=== PATIENT | female | born 1975 | race Caucasian/White ===

== ENCOUNTER 2016-12-28 08:19 | Emergency (ER) | payer SELFPAY ==
[2016-12-28 08:56] LABS: Basophils % (Auto) 0.7 % (0.0-1.8); Eosinophils % (Auto) 1.3 % (0.0-4.3); Hematocrit 36.9 % (30.3-42.9); Hemoglobin 12.3 gm/dl (10.1-14.3); Mean Corpuscular HGB Conc 33 % (30-34); Mean Corpuscular Hemoglobin 27 pg (28-32); Mean Corpuscular Volume 81 fl (79-97); Platelet Count 178 K/mm3 (140-440); Red Blood Count 4.58 M/mm3 (3.65-5.03); Red Cell Distribution Width 14.1 % (13.2-15.2); White Blood Count 9.2 K/mm3 (4.5-11.0)
[2016-12-28 09:15] LABS: Anion Gap 19 mmol/L; BUN/Creatinine Ratio 18; Blood Urea Nitrogen 11 mg/dL (7-17); Calcium 8.9 mg/dL (8.4-10.2); Carbon Dioxide 24 mmol/L (22-30); Chloride 101.6 mmol/L (98-107); Glucose 102 mg/dL (65-100); Potassium 3.7 mmol/L (3.6-5.0); Sodium 141 mmol/L (137-145)
[2016-12-28] MEDS ORDERED: PROVENTIL IH ONE (21:56)
[2016-12-28] MEDS ORDERED: DELTASONE PO ONE (21:57)
[2016-12-28] MEDS ORDERED: TESSALON PERLES PO ONE (21:57)
[2016-12-28] MEDS ORDERED: TORADOL IM ONE (22:02)
--- NOTE | 2016-12-28 22:02 | Emergency Department Report ---
ED Chest Pain HPI - General Chief Complaint: Chest Pain Stated Complaint: CHEST PAIN Time Seen by Provider: 12/28/16 21:51 Source: patient Mode of arrival: Ambulatory Limitations: Language Barrier - History of Present Illness Initial Comments: 41-year-old female with past medical history of reflux has presented to the ED complaining of chest pain. Onset of chest pain started 1 day prior to ED arrival. Patient states she's been coughing for over 1 week. Cough has been dry intermittent, no relaxing or worsening factors. Concerning chest pain, it is along the anterior wall, nonradiating, worse with cough, improves when she is not coughing. Patient denies: Fever/chills, hemoptysis, recent travel, history of TB, lower extremity edema, history of PE/DVT, history of NE. MD Complaint: chest pain -: days(s) (1) Onset: during rest Pain Location: other (anterior chest wall ) Severity scale (0 -10): 4 Quality: sharp Consistency: constant Improves With: nothing Worsens With: other (cough ) re: denies: nausea, vomting, diaphoresis, dyspnea Other Symptoms: cough. denies: fever, syncope, rash, acid taste in mouth, palpitations, burping Treatments Prior to Arrival: none - Related Data Previous Rx's Medication Instructions Recorded Last Taken Type ALBUTEROL Inhaler [ProAir HFA 2 puff IH QID PRN #1 inhalation 12/28/16 Unknown Rx Inhaler] ALBUTEROL NEB's [Proventil 0.083% 2.5 mg IH TID PRN #30 neb 12/28/16 Unknown Rx NEBS] Benzonatate [Tessalon Perles] 100 mg PO Q8HR #20 capsule 12/28/16 Unknown Rx predniSONE [Deltasone] 50 mg PO QDAY #5 tab 12/28/16 Unknown Rx Allergies Allergy/AdvReac Type Severity Reaction Status Date / Time No Known Allergies Allergy Unverified 12/28/16 08:41 Heart Score - HEART Score History: Slightly suspicious EKG: Normal Age: < 45 Risk factors: No known risk factors Troponin: < normal limit HEART Score: 0 - Critical Actions Critical Actions: 0-3 pts:0.9-1.7%risk of adverse cardiac event.Candidate for discharge ED Review of Systems ROS: Stated complaint: CHEST PAIN Other details as noted in HPI Constitutional: denies: chills, fever Eyes: denies: eye pain, eye discharge, vision change ENT: denies: ear pain, throat pain Respiratory: cough. denies: orthopnea, shortness of breath, SOB with exertion, SOB at rest, wheezing Cardiovascular: chest pain. denies: palpitations Endocrine: no symptoms reported Gastrointestinal: denies: abdominal pain, nausea, diarrhea Genitourinary: denies: urgency, dysuria, discharge Musculoskeletal: denies: back pain, joint swelling, arthralgia Skin: denies: rash, lesions Neurological: denies: headache, weakness, paresthesias Psychiatric: denies: anxiety, depression Hematological/Lymphatic: denies: easy bleeding, easy bruising ED Past Medical Hx - Past Medical History Previous Medical History?: No - Surgical History Past Surgical History?: Yes Additional Surgical History: C section - Social History Smoking Status: Never Smoker Substance Use Type: None - Medications Home Medications: Home Medications Medication Instructions Recorded Confirmed Last Taken Type ALBUTEROL Inhaler [ProAir HFA 2 puff IH QID PRN #1 inhalation 12/28/16 Unknown Rx Inhaler] ALBUTEROL NEB's [Proventil 0.083% 2.5 mg IH TID PRN #30 neb 12/28/16 Unknown Rx NEBS] Benzonatate [Tessalon Perles] 100 mg PO Q8HR #20 capsule 12/28/16 Unknown Rx predniSONE [Deltasone] 50 mg PO QDAY #5 tab 12/28/16 Unknown Rx ED Physical Exam - General Limitations: Language Barrier General appearance: alert, in no apparent distress - Head Head exam: Present: atraumatic, normocephalic - Eye Eye exam: Present: normal appearance - ENT ENT exam: Present: mucous membranes moist - Neck Neck exam: Present: normal inspection - Respiratory Respiratory exam: Present: normal lung sounds bilaterally, chest wall tenderness (Pt has reproducible chest wall tenderness ). Absent: respiratory distress, wheezes, rales, rhonchi - Cardiovascular Cardiovascular Exam: Present: regular rate, normal rhythm. Absent: systolic murmur, diastolic murmur, rubs, gallop - GI/Abdominal GI/Abdominal exam: Present: soft, normal bowel sounds. Absent: distended, tenderness, guarding - Extremities Exam Extremities exam: Present: normal inspection, full ROM, tenderness. Absent: pedal edema, calf tenderness - Back Exam Back exam: Present: normal inspection - Neurological Exam Neurological exam: Present: alert, oriented X3 - Psychiatric Psychiatric exam: Present: normal affect, normal mood - Skin Skin exam: Present: warm, dry, intact, normal color. Absent: rash ED Course Vital Signs 12/28/16 12/28/16 12/28/16 08:38 21:33 22:18 Temperature 98.5 F 98 F Pulse Rate 70 61 Pulse Rate [ 71 Bilateral] Respiratory 16 61 H Rate Respiratory 18 Rate [Bilateral ] Blood Pressure 127/81 Blood Pressure 139/74 [Left] O2 Sat by Pulse 100 100 Oximetry ED Medical Decision Making - Lab Data Result diagrams: 12/28/16 08:43 12/28/16 08:43 - EKG Data -: EKG Interpreted by Me EKG shows normal: sinus rhythm (79), axis (UPRIGHT ), intervals, QRS complexes ( 96) - EKG Data Interpretation: nonspecific ST-T wave lilia - Radiology Data Radiology results: image reviewed pt CXR negative for acute findings. - Medical Decision Making 41-year-old female presenting to the ED complaining of cough. Cough Likely this is secondary to acute bronchitis. I have low suspicion for pneumonia as chest x-ray was negative. I have low suspicion for PE as patient is: PERC negative, no tachycardia, no hypoxia, no lower extremity edema. I have low suspicion for NE as pt has negative troponin and EKG is not consistent with ischemia Patient states symptoms have improved and she is stable discharge, follow up with PCP. Patient has no concerns at this time. Critical care attestation.: If time is entered above; I have spent that time in minutes in the direct care of this critically ill patient, excluding procedure time. ED Disposition Clinical Impression: Cough, Bronchitis Disposition: DC-01 TO HOME OR SELFCARE Is pt being admited?: No Does the pt Need Aspirin: No Condition: Stable Instructions: Acute Bronchitis (ED), Chronic Bronchitis (ED) Prescriptions: ALBUTEROL Inhaler [ProAir HFA Inhaler] 2 puff IH QID PRN #1 inhalation PRN Reason: Shortness Of Breath ALBUTEROL NEB's [Proventil 0.083% NEBS] 2.5 mg IH TID PRN #30 neb PRN Reason: Wheezing Benzonatate [Tessalon Perles] 100 mg PO Q8HR #20 capsule predniSONE [Deltasone] 50 mg PO QDAY #5 tab Referrals: PRIMARY CARE, [Primary Care Provider] - 3-5 Days Forms: Work/School Release Form(ED)
[2016-12-29 00:05] VITALS: BP 119/62
--- NOTE | 2016-12-29 09:19 | XRay Report ---
XRAY CHEST TWO VIEWS: 12/28/22:15 CLINICAL: Cough and chest tightness for three weeks. COMPARISON: None FINDINGS: Normal heart and pulmonary vasculature. The lungs are normally expanded and clear.The bones and soft tissues are unremarkable. IMPRESSION: Normal chest.
== END 2016-12-29 00:06 | disposition home or self-care (01) ==
LOC: ED 08:19
DX: J40 Bronchitis, not specified as acute or chronic (principal)
CPT/HCPCS: 36415; 71020; 80048; 84484; 85025; 93005; 93010; 96372; 99284; J1885; J7512